=== PATIENT | female | born 1980 | race Caucasian/White ===

== ENCOUNTER → 2023-05-28 09:34 | Outpatient (BNVA) | payer BC, MEDICAID, SELFPAY | PROVIDERS: PCP Nurse Practitioner Family; Visit Provider Nurse Practitioner Family | DX: E78.5 Hyperlipidemia, unspecified (principal); I10 Essential (primary) hypertension; E11.9 Type 2 diabetes mellitus without complications; E55.9 Vitamin D deficiency, unspecified; E56.9 Vitamin deficiency, unspecified; Z13.29 Encounter for screening for other suspected endocrine disorder; E53.8 Deficiency of other specified B group vitamins | CPT/HCPCS: 80053; 80061; 82306; 82607; 83036; 84443; 85025 ==

== ENCOUNTER → 2023-06-03 09:44 | Outpatient (BNVA) | payer BC, MEDICAID, SELFPAY | PROVIDERS: PCP Nurse Practitioner Family; Visit Provider Nurse Practitioner Family | DX: N93.9 Abnormal uterine and vaginal bleeding, unspecified (principal) | CPT/HCPCS: 82670; 83001; 83002; 84144; 84146 ==

== ENCOUNTER 2023-06-05 11:43 | Outpatient (CLI) | payer BC, MEDICAID, SELFPAY ==
--- NOTE | 2023-06-05 11:52 | XR_ITS ---
WS: [id number] Exam: XR knee RT 3V* [id number] Date/Time of Exam: 06/05/2023 12:11 PM Reason For Exam: right knee pain No fracture or dislocation noted. Mild degenerative change of the medial joint compartment. No joint effusion identified. Normal soft tissues. IMPRESSION1. Mild degenerative change of the medial compartment. No other significant finding.
--- NOTE | 2023-06-05 11:52 | XR_ITS ---
WS: [id number] Exam: XR tibia fibula LT 2V [id number] Date/Time of Exam: 06/05/2023 12:11 PM Reason For Exam: left tib/fib pain No fracture or dislocation. Several small calcified phleboliths seen in the anterior soft tissues. IMPRESSION: 1. Negative tibia and fibula.
== END 2023-06-05 11:44 | disposition home or self-care (01) ==
LOC: RAD 11:46
PROVIDERS: PCP Nurse Practitioner Family; Visit Provider Nurse Practitioner Family
DX: M79.605 Pain in left leg (principal); M17.11 Unilateral primary osteoarthritis, right knee
CPT/HCPCS: 73562; 73590

== ENCOUNTER → 2023-06-17 11:26 | Outpatient (BNVA) | payer BC, MEDICAID, SELFPAY | PROVIDERS: PCP Nurse Practitioner Family; Referring Provider Nurse Practitioner Family; Visit Provider Nurse Practitioner Family | DX: M25.561 Pain in right knee (principal); M21.061 Valgus deformity, not elsewhere classified, right knee; M22.8X1 Other disorders of patella, right knee | CPT/HCPCS: 73560; 73565 ==

== ENCOUNTER → 2023-08-20 11:57 | Outpatient (BNVA) | payer BC, MEDICAID, SELFPAY | PROVIDERS: PCP Nurse Practitioner Family; Visit Provider Nurse Practitioner Family | DX: E78.5 Hyperlipidemia, unspecified (principal); I10 Essential (primary) hypertension; E11.9 Type 2 diabetes mellitus without complications; J40 Bronchitis, not specified as acute or chronic | CPT/HCPCS: 80053; 83036; 87486; 87581; 87633 ==

== ENCOUNTER 2023-09-02 06:19 | Day surgery (SDC) | payer BC, MEDICAID, SELFPAY ==
[2023-09-02 06:24] VITALS: BMI 32.8
[2023-09-02 06:31] VITALS: BP 165/108; PULSE 93; RESP 18; TEMP 36.1; O2SAT 98
[2023-09-02] MEDS: sodium chloride 0.9% 1,000 ML 30 ML IV (06:35)
[2023-09-02 06:52] LABS: Glucose Point of Care 194 mg/dL (70-110)
--- NOTE | 2023-09-02 06:59 | ANES.PREANE2 ---
Pre-Anesthetic Assessment Height/Weight: Height 1.63 m Weight 86.636 kg Temp Pulse Resp BP Pulse Ox O2 Del Method 97 F L 93 18 165/108 98 Room Air 09/02/23 06:31 09/02/23 06:31 09/02/23 06:31 09/02/23 06:31 09/02/23 06:31 09/02/23 06:31 Operation Date: 09/02/23 07:15 Proposed Procedures p [id number] egd [id number] colon G0121 screen colon A risk r10.13,R11.2,K59.00(Not Applicable) - DO eusebia Betancourt Colonoscopy(Not Applicable) - Loc Sotelo DO Familial anesthetic complications: no Last intake: Intake Last Liquid Date 09/02/23 Last Liquid Time 20:00 Last Solid Date 09/01/23 Last Solid Time 19:00 Social Tobacco Exam alert and oriented x 3 Airway Submandibular: within normal limits Cervical ROM: within normal limits Mallampati: Class I Dentition: other (edentulous) Pulmonary None reported occ. uses inhaler CV/HEM Hypertension None reported Hepatic None reported GI Gastroesophageal Reflux Disease Metabolic Diabetes Mellitus (type 2) Neuropsych Anxiety, Bipolar and Depression Anesthetic Plan ASA status: 2 Anesthesia: Anesthesia Evaluation and MAC Risk of > 500 ml blood loss (7ml/kg in children): No Medications/Allergies Home Medications Medication Instructions Recorded Confirmed Last Taken Type atorvastatin 10 mg tablet 10 mg PO DAILY #30 tabs 06/01/23 08/31/23 09/01/23 Rx blood sugar diagnostic (Blood #50 ea 06/01/23 08/31/23 09/01/23 Rx Glucose Test strips) blood-glucose meter (Blood Glucose #1 ea 06/01/23 08/31/23 09/01/23 Rx Monitoring kit) lancets #100 ea 06/01/23 08/31/23 09/01/23 Rx liraglutide 0.6 mg/0.1 mL (18 mg/3 1.2 mg (0.2 mL) SUBCUT DAILY #6 mL 06/01/23 08/31/23 08/25/23 Rx mL) subcutaneous pen injector (Victoza 2-Jose Roberto) gabapentin 300 mg capsule 300 mg PO BID 30 days #60 caps 06/03/23 08/31/23 09/01/23 Rx fluticasone propionate 115 2 puff inhalation BID #12 grams 06/12/23 08/31/23 09/01/23 Rx mcg-salmeterol 21 mcg/actuation HFA inhaler (Advair HFA) omeprazole 20 mg capsule,delayed 20 mg PO BID #180 caps 06/12/23 08/31/23 09/01/23 Rx release bupropion HCl 150 mg tablet,12 hr See Rx Instructions .Route 06/30/23 08/31/23 09/01/23 Rx sustained-release .COMPLEX #30 tabs lisinopril 10 1 tab PO QAM #90 tabs 06/30/23 08/31/23 09/01/23 Rx mg-hydrochlorothiazide 12.5 mg tablet pen needle, diabetic 32 gauge x ##50 08/24/23 08/31/23 09/01/23 Rx (TechLITE Pen Needle) docusate sodium 100 mg capsule 200 mg PO DAILY 08/31/23 08/31/23 09/01/23 History trazodone 100 mg tablet 100 mg PO BEDTIME 08/31/23 08/31/23 09/01/23 History Allergies Allergy/AdvReac Type Severity Reaction Status Date / Time amoxicillin Allergy Mild hives Verified 07/29/23 12:42 Current Medications Generic Name Dose Route Start Last Admin Trade Name Freq PRN Reason Stop Dose Admin Sodium Chloride 1,000 mls @ 30 mls/hr 09/02/23 06:30 09/02/23 06:35 Sodium Chloride 0.9% IV 09/03/23 06:29 30 mls/hr .Q24H RAVIN Administration PFSH Anesthesia Medical History Bipolar I disorder Family history of colon cancer GERD (gastroesophageal reflux disease) Hx maternal GBS (group B streptococcus) affected , Hyperlipidemia Hypertension Insomnia Type 2 diabetes mellitus Surgical History History of prior ablation treatment History of tubal ligation Family History Father Diabetes Grandmother Diabetes Sister Osteoarthritis Social History Smoking and tobacco/nicotine status: current every day tobacco/nicotine user cigarettes Packs smoked per day: 1.5 Years cigarettes smoked: 28 Second hand smoke exposure: Yes Alcohol intake: current Alcohol intake frequency: holidays/special occasions only Alcohol type: other Substance/Drug Use: current Substance/Drug use frequency: few times a month Household members: spouse Marital status: service: No Current occupational status: disabled Current gender identity: Female Special collette needs: No Data Anesthesia Cardiac Studies: No Data to Display
--- NOTE | 2023-09-02 06:59 | PM.HP ---
Providers/Chief Complaint Primary Care Provider: BAKARI Nixon Chief Complaint: R10.13, R11.2, K59.00 History of Present Illness Disha Moon is a 42 year old female Review of Systems General: Reports: 10 or more systems reviewed and unremarkable except in HPI and below Medications/Allergies Home Medications Medication Instructions Recorded Confirmed Last Taken Type atorvastatin 10 mg tablet 10 mg PO DAILY #30 tabs 06/01/23 08/31/23 09/01/23 Rx blood sugar diagnostic (Blood #50 ea 06/01/23 08/31/23 09/01/23 Rx Glucose Test strips) blood-glucose meter (Blood Glucose #1 ea 06/01/23 08/31/23 09/01/23 Rx Monitoring kit) lancets #100 ea 06/01/23 08/31/23 09/01/23 Rx liraglutide 0.6 mg/0.1 mL (18 mg/3 1.2 mg (0.2 mL) SUBCUT DAILY #6 mL 06/01/23 08/31/23 08/25/23 Rx mL) subcutaneous pen injector ([employer] 2-Jose Roberto) gabapentin 300 mg capsule 300 mg PO BID 30 days #60 caps 06/03/23 08/31/23 09/01/23 Rx fluticasone propionate 115 2 puff inhalation BID #12 grams 06/12/23 08/31/23 09/01/23 Rx mcg-salmeterol 21 mcg/actuation HFA inhaler (Advair HFA) omeprazole 20 mg capsule,delayed 20 mg PO BID #180 caps 06/12/23 08/31/23 09/01/23 Rx release bupropion HCl 150 mg tablet,12 hr See Rx Instructions .Route 06/30/23 08/31/23 09/01/23 Rx sustained-release .COMPLEX #30 tabs lisinopril 10 1 tab PO QAM #90 tabs 06/30/23 08/31/23 09/01/23 Rx mg-hydrochlorothiazide 12.5 mg tablet pen needle, diabetic 32 gauge x ##50 08/24/23 08/31/23 09/01/23 Rx 5/32 (TechLITE Pen Needle) docusate sodium 100 mg capsule 200 mg PO DAILY 08/31/23 08/31/23 09/01/23 History trazodone 100 mg tablet 100 mg PO BEDTIME 08/31/23 08/31/23 09/01/23 History Allergies Allergy/AdvReac Type Severity Reaction Status Date / Time amoxicillin Allergy Mild hives Verified 07/29/23 12:42 PFSH Acute PFSH: Medical History Bipolar I disorder Family history of colon cancer GERD (gastroesophageal reflux disease) Hx maternal GBS (group B streptococcus) affected , Hyperlipidemia Hypertension Insomnia Type 2 diabetes mellitus Surgical History History of prior ablation treatment History of tubal ligation Family History Father Diabetes Grandmother Diabetes Sister Osteoarthritis Social History Smoking and tobacco/nicotine status: current every day tobacco/nicotine user cigarettes Packs smoked per day: 1.5 Years cigarettes smoked: 28 Second hand smoke exposure: Yes Alcohol intake: current Alcohol intake frequency: holidays/special occasions only Alcohol type: other Substance/Drug Use: current Substance/Drug use frequency: few times a month Household members: spouse Marital status: service: No Current occupational status: disabled Current gender identity: Female Special collette needs: No Vitals/I&O/Wt Last Vital Signs Temp 97 F L 09/02/23 06:31 Pulse 93 09/02/23 06:31 Resp 18 09/02/23 06:31 BP 165/108 09/02/23 06:31 Pulse Ox 98 09/02/23 06:31 O2 Del Method Room Air 09/02/23 06:31 Weight last 48 hrs Weight 191 lb A&P Assessment and plan (1) Family history of colon cancer: (2) Hematochezia: (3) Nausea and vomiting: (4) Epigastric pain: (5) Constipation: (6) GERD (gastroesophageal reflux disease): Plan EGD Diagnostic colonoscopy Attestations Medical Necessity Statement*: HOME Coding Level of Care Code Acute Code for Chg Fwd Diagnoses Family history of colon cancer Z80.0 Hematochezia K92.1 Nausea and vomiting R11.2 Epigastric pain R10.13 Constipation K59.00 GERD (gastroesophageal reflux disease) K21.9
[2023-09-02 07:32] VITALS: BP 128/95; PULSE 88; RESP 16; TEMP 36.1; O2SAT 98
[2023-09-02 07:37] VITALS: BP 126/105; PULSE 89; RESP 18; O2SAT 99
[2023-09-02 07:49] VITALS: BP 149/111; PULSE 85; RESP 20; O2SAT 99
--- NOTE | 2023-09-02 13:27 | ANE.PACU2 ---
Inpatient post-anesthesia follow up: Airway intact: Yes Vital signs: Temperature 97.0 F Pulse Rate 85 Respiratory Rate 20 Blood Pressure 149/111 Pulse Oximetry 99 Oxygen Delivery Me thod Room Air Oxygen Flow Rate Fraction of Inspir ed Oxygen Hydration adequate: Yes Nausea and vomiting: No Pain level: 1 Mental status: Baseline
== END 2023-09-02 08:03 | disposition home or self-care (01) ==
PROVIDERS: PCP Nurse Practitioner Family; Visit Provider Surgery
PROC: 0DJ08ZZ Inspection of Upper Intestinal Tract, Via Natural or Artificial Opening Endoscopic (ICD-10-PCS; CPT 43235; principal; 2023-09-02 07:15)
PROC: 0DJD8ZZ Inspection of Lower Intestinal Tract, Via Natural or Artificial Opening Endoscopic (ICD-10-PCS; CPT 45378; 2023-09-02 07:15)
DX: K59.00 Constipation, unspecified (principal); K92.1 Melena; Z80.0 Family history of malignant neoplasm of digestive organs; R10.13 Epigastric pain; R11.2 Nausea with vomiting, unspecified; D12.5 Benign neoplasm of sigmoid colon; K44.9 Diaphragmatic hernia without obstruction or gangrene; K21.9 Gastro-esophageal reflux disease without esophagitis; E11.9 Type 2 diabetes mellitus without complications; E78.5 Hyperlipidemia, unspecified; I10 Essential (primary) hypertension; F17.210 Nicotine dependence, cigarettes, uncomplicated
CPT/HCPCS: 36416; 43239; 45385; 82962; 88305; J2704; J7030

== ENCOUNTER 2023-09-10 06:27 | Outpatient (CLI) | payer BC, MEDICAID, SELFPAY ==
--- NOTE | 2023-09-10 06:40 | US_ITS ---
WS: [id number] RIGHT UPPER QUADRANT ULTRASOUND HISTORY: epigastric pain COMPARISON: None available. Liver: 19.7 cm in length. Mild hepatomegaly. No mass or bile duct dilatation. Portal Vein: Normal hepatopetal flow with monophasic waveform. Gallbladder: Normally distended gallbladder with no stones or wall thickening. CBD: 0.4 cm Pancreas: Normal size and echogenicity. Right kidney: 12.1 cm in length. Normal size and echogenicity. No hydronephrosis or mass. Aorta and IVC: Unremarkable abdominal aorta and IVC. No ascites. IMPRESSION: Mild hepatic enlargement. Otherwise negative.
== END 2023-09-10 06:28 | disposition home or self-care (01) ==
LOC: RAD 06:27
PROVIDERS: PCP Nurse Practitioner Family; Visit Provider Surgery
DX: R10.13 Epigastric pain (principal); R16.0 Hepatomegaly, not elsewhere classified
CPT/HCPCS: 76705

== ENCOUNTER 2023-10-25 00:58 | Emergency (ER) | payer BC, MEDICAID, SELFPAY ==
[2023-10-25 01:03] VITALS: BP 116/90; PULSE 120; RESP 18; TEMP 37.2; O2SAT 95; BMI 24.9
--- NOTE | 2023-10-25 01:05 | ECG_ITS ---
[facility] Test Date: 2023-10-25 Pat Name: Disha Moon Department: Room: Gender: Female Bottle Blower: : 1980 Requested By: Eloy Cuevas Order Number: [id number] Reading MD: Mauri Martinez M.D. Measurements Intervals [place] Rate: 121 P: 31 SD: 135 QRS: 37 QRSD: 86 T: 40 QT: 338 QTc: 481 Interpretive Statements SINUS TACHYCARDIA NONSPECIFIC T-WAVE ABNORMALITY ABNORMAL RHYTHM ECG No previous ECG available for comparison Electronically Signed On 10-25-2023 8:32:21 B OPERATOR by Mauri Martinez M.D. [id number]
[2023-10-25 01:16] VITALS: BP 116/90; PULSE 126; RESP 16; O2SAT 93
[2023-10-25 01:27] LABS: Basophils # 0.1 10^3/uL (0.0-0.1); Basophils % 0.6 %; Eosinophils # 0.1 10^3/uL (0.0-0.8); Eosinophils % 0.8 %; Hematocrit 42.7 % (36-47); Lymphocytes # 3.4 10^3/uL (0.8-4.8); Lymphocytes % 27.8 %; Mean Corpuscular HGB Conc 33.7 g/dL (30-55); Mean Corpuscular Hemoglobin 30.1 pg (27-33); Mean Corpuscular Volume 89.1 fl (85-98); Mean Platelet Volume 10.4 fL (7.4-10.4); Monocytes # 0.9 10^3/uL (0.2-0.9); Monocytes % 7.1 %; Neutrophils # 7.63 10^3/uL (1.8-7.7); Neutrophils % 63.3 %; Nucleated Red Blood Cells % 0 %; Platelet Count 236 10^3/cmm (157-399); Red Blood Count 4.79 10^6/uL (3.85-5.65); Red Cell Distribution Width 12.7 % (12.1-15.1); White Blood Count 12.06 10^3/uL (3.29-11.43)
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
[2023-10-25 01:47] LABS: Alanine Aminotransferase 18 U/L (0-33); Albumin Level 4.2 g/dL (3.5-5.2); Alkaline Phosphatase 94 U/L (35-105); Anion Gap 17.4 (5-19); Aspartate Amino Transferase 16 U/L (0-32); Blood Urea Nitrogen 20 mg/dL (6-20); Calcium 9.8 mg/dL (8.5-10.5); Carbon Dioxide 24 mmol/L (22-29); Chloride 96 mmol/L (98-107); Globulin 3.1 g/dL (1.3-4.6); Glomerular Filtration Rate 68.3 mL/min (90-130); Glucose 275 mg/dL (65-115); Lipase 54 U/L (13-60); Osmolality Calculated 290 mOsm/kg (285-295); Potassium 3.4 mmol/L (3.5-5.1); Sodium 134 mmol/L (136-145); Total Bilirubin 0.3 mg/dL (0.15-1.2); Total Protein 7.3 g/dL (6.6-8.7)
--- NOTE | 2023-10-28 11:27 | DCPLANNER ---
Message sent to [facility] requesting for [facility] services.
== END 2023-10-25 02:13 | disposition home or self-care (01) ==
PROVIDERS: Emergency Provider Emergency Medicine; PCP Nurse Practitioner Family
DX: F41.9 Anxiety disorder, unspecified (principal); Z72.0 Tobacco use; E11.9 Type 2 diabetes mellitus without complications; E78.5 Hyperlipidemia, unspecified; I10 Essential (primary) hypertension
CPT/HCPCS: 36415; 80053; 83690; 85025; 93005; 99284

== ENCOUNTER → 2024-01-21 11:08 | Outpatient (BNVA) | payer BC, MEDICAID, SELFPAY | PROVIDERS: PCP Nurse Practitioner Family; Visit Provider Nurse Practitioner Family | DX: E11.9 Type 2 diabetes mellitus without complications (principal) | CPT/HCPCS: 80053; 80061; 82043; 83036; 84443; 85025 ==

== ENCOUNTER → 2024-04-26 17:02 | Outpatient (BNVA) | payer BC, MEDICAID, SELFPAY | PROVIDERS: PCP Nurse Practitioner Family; Visit Provider Nurse Practitioner Family | DX: I10 Essential (primary) hypertension (principal); Z11.3 Encounter for screening for infections with a predominantly sexual mode of transmission; E11.65 Type 2 diabetes mellitus with hyperglycemia | CPT/HCPCS: 80053; 80061; 82607; 83036; 84443; 85025; 86592; 86803; 87491; 87591; 87806 ==

== ENCOUNTER → 2024-05-10 15:05 | Outpatient (BNVA) | payer BC, MEDICAID, SELFPAY | PROVIDERS: PCP Nurse Practitioner Family; Visit Provider Nurse Practitioner Family | DX: Z11.3 Encounter for screening for infections with a predominantly sexual mode of transmission (principal) | CPT/HCPCS: 86695; 86696; 87491; 87591 ==

== ENCOUNTER → 2024-11-14 12:50 | Outpatient (BNVA) | payer MEDICAID, SELFPAY | PROVIDERS: PCP Nurse Practitioner Family; Visit Provider Nurse Practitioner Family | DX: E11.65 Type 2 diabetes mellitus with hyperglycemia (principal) | CPT/HCPCS: 80053; 80061; 82607; 83036; 84443; 85025 ==